=== PATIENT | female | born 1955 | race Caucasian/White ===

== ENCOUNTER 2017-08-24 07:46 | Observation (INO) | payer BC ==
[~2017-08-24] VITALS: Ht 175.3 cm; Wt 92.0 kg
[~2017-08-24 07:46] MED LIST: CELEXA20 MG PO; DEXILANT60 MG PO; HYDROCODONE-APA1 TAB PO; PHENERGAN25 M1 PO
[2017-08-24 08:17] LABS: BASOPHILS 0.4 % (0-2); EOSINOPHILS 2.6 % (0-7); HEMATOCRIT 40.6 % (36.0-48.0); HEMOGLOBIN 13.8 g/dL (12-16); IMMATURE GRANULOCYTES 1.2 % (0-5); LYMPHOCYTES 26.6 % (15-50); MCH 30.3 pg (26.0-34.0); MONOCYTES 12.8 % (2-11); NEUTROPHILS 56.4 % (40-80); RBC 4.56 10x6/uL (4.00-5.40); RDW 12.9 % (11.5-14.5); WBC 9.4 10x3/uL (4.8-10.8)
[2017-08-24 08:22] LABS: PLATELET COUNT 255 10x3/uL (130-400)
[2017-08-24 08:31] LABS: ALBUMIN 3.4 g/dL (3.4-5.0); ANION GAP 13.8 mmol/L (8-16); BILIRUBIN - TOTAL 0.6 mg/dL (0.2-1.3); CALCIUM 8.7 mg/dL (8.5-10.1); CARBON DIOXIDE 25.3 mmol/L (21.0-32.0); POTASSIUM - SERUM 4.1 mmol/L (3.5-5.1)
[2017-08-24 08:37] LABS: APTT 23.9 SECONDS (22.8-39.4); INR 0.93 (0.85-1.17); PROTIME 12.3 SECONDS (11.6-15.0)
[2017-08-24 09:09] LABS: MAGNESIUM - SERUM 2.2 mg/dL (1.8-2.4)
--- NOTE | 2017-08-24 17:36 | NUR ---
RECEIVED PT TO ROOM 2123, VIA STRETCHER, ACCOMPANIED BY SON. PT A/O X4. NO DEFICITS NOTED AT THIS TIME. ORIENTED PT TO ROOM AND CALL LIGHT. PLACED HEART MONITOR ON PT. WILL ASSESS PT AND START PLAN OF CARE.
[2017-08-24] MEDS ORDERED: CELEXA10 MG PO (17:41)
[2017-08-24 18:14] VITALS: BP 125/73; Ht 175.3 cm; Wt 92.0 kg
[2017-08-24] MEDS ORDERED: PRAVACHOL20 MG PO (18:27)
[2017-08-24 18:42] LABS: CHOL - HDL RATIO 2.4 ratio (2.3-4.1); LDL-HDL RATIO 1.1 ratio (1.5-3.5)
[2017-08-24 19:00] VITALS: BP 120/74
[2017-08-24 19:22] LABS: CKMB 0.2 U/L (0.0-3.6); CREATINE KINASE 46 UL (21-215)
[2017-08-24 19:37] LABS: TROPONIN-I < 0.017 ng/mL (0.000-0.060)
--- NOTE | 2017-08-24 22:29 | NUR ---
PATIENT RESTING COMFORTABLY. ROOM DARK, CALL LIGHT IN REACH BED IN LOW POSITION. DENIES ANY NEEDS AT THIS TIME.
[2017-08-24 23:29] VITALS: BP 112/48
[2017-08-25 01:21] LABS: CREATINE KINASE 58 UL (21-215)
[2017-08-25 01:25] LABS: TROPONIN-I < 0.017 ng/mL (0.000-0.060)
[2017-08-25 04:05] VITALS: BP 126/72
--- NOTE | 2017-08-25 05:31 | NUR ---
BAKELITE MOLDER AT BEDSIDE TO OBTAIN VITALS, WILL CONTINUE WITH PLAN OF CARE. CALL LIGHT IN REACH.
[2017-08-25 06:40] LABS: CREATINE KINASE 46 UL (21-215); TROPONIN-I < 0.017 ng/mL (0.000-0.060)
--- NOTE | 2017-08-25 07:30 | NUR ---
RECEIVED PT IN BED AAOX4 RESP UNLABORED KEEPS WANTING TO KNOW VWLIU SHE CAN LEAVE EXPLAINED SHE HAS TO HAVE TESTS DONE AND SEE PHYSICIANS NEURO CHECKS WNL NAD NOTED
[2017-08-25 07:33] VITALS: BP 147/84
--- NOTE | 2017-08-25 10:00 | NUR ---
ECHO DONE AT THIS TIME PT TOLERATED WELL
[2017-08-25 11:37] VITALS: BP 129/93
[2017-08-25] MEDS ORDERED: ASPIRIN325 MG PO (12:13)
--- NOTE | 2017-08-25 14:13 | NUR ---
REVIEWED DISCHARGE INSTRUCTIONS WITH PT AND STATES UNDERSTANDING COPY GIVEN SALINE LOCKS DCD TO RT HAND AND LAC WITH IV CATHETERS INTACT BOTH SITES FREE OF REDNESS OR EDEMA PT DISCHARGED HOME LEFT UNIT VIA W/C IN STABLE CONDITION WITH ALL PERSONAL BELONGINGS
--- NOTE | 2017-08-26 14:14 | EC ---
PATIENT:CARLA HART DATE OF SERVICE: 08/24/17 SEX: F MEDICAL RECORD: [id number] DATE OF : 59 LOCATION:[facility]. D.212 AGE OF PATIENT: 62 ADMISSION DATE: 08/24/17 REFERRING PHYSICIAN: INTERPRETING PHYSICIAN: GIL SÁNCHEZ MD ECHOCARDIOGRAM REPORT ECHO CHARGES 4 ECHO COMPLETE CLINICAL DIAGNOSIS: ARRHYTHMIA/STROKE SYMPTOMS ECHOCARDIOGRAPHIC MEASUREMENTS (adult normal given) AC root (d.<3.7cm) 3.1 cm LV Septum d (<1.2 cm> 1.3 cm Valve Excursion 1.5 cm LV Septum (systole) 1.5 cm Left Atria (s.<4.0cm> 4.5 cm LVPW d(<1.2cm) 1.5 cm RV (d.<2.3cm) 3.5 cm LVPW (sytole) 2.0 cm LV diastole(<5.6CM) 5.7 cm MV E-F(>70mm/sec) cm LV systole 3.7 cm LVOT Diameter 2.4 cm MV exc.(>10mm) 1.8 cm Est.ejection fraction (50-75%) % Pericardial Effusion N DOPPLER: LVIT cm/sec A 96.0 cm/sec E 67.0 cm/sec LA cm/sec RVSP 16 mmHg LVOT 90 cm/sec AOP1/2T m/s Asc. Ao 153 cm/sec RVOT 120 cm/sec RA cm/sec PA 147 cm/sec AV Gradient Peak 9.41 mmHg AV Mean 5.50 mmHg AV Area 2.2 cm MV Gradient Peak 4.74 mmHg MV Mean 1.34 mmHg MV Area cm COMMENTS: Fraud Prevention Analyst: Daron WAGGONER Government Service Executive: 2 Dr. Persaud TAPE# PACS DATE OF SERVICE: 08/25/2017 FINDINGS: 1. Left ventricular chamber size is within normal limits. Left ventricular systolic function is normal. Overall ejection fraction is estimated at 55% to 60%. 2. Left atrium, right atrium, and right ventricle chamber sizes are mildly dilated. Left atrium measures 4.5 cm. 3. Valvular structures have normal structure and motion. 4. Doppler interrogation reveals mild mitral regurgitation, mild tricuspid ECHOCARDIOGRAM REPORT [id number] CARLA HART regurgitation, and no other valvular insufficiency or stenosis. 5. No cardiac source of neurologic emboli. TRANSINT:[id number] Voice Confirmation ID: [id number] DOCUMENT ID: [id number] GIL SÁNCHEZ MD at 1414 CC: [id number] DICTATION DATE: 08/26/17 110 APPRENTICE PAINTER HAND: 08/26/17 1148 DIS IN 08/25/17 [place] [id number] [place] [id number]
== END 2017-08-25 14:00 | disposition home or self-care (01) ==
LOC: D.ER 07:46 → D.SDCHOLD 08:55 → OBSVTIME 08:55 → D.M2 08:55
PROVIDERS: Emergency Medicine; ADMIT Emergency Medicine
DX: G45.9 Transient cerebral ischemic attack, unspecified (principal)

== ENCOUNTER 2021-01-16 12:50 | Day surgery (SDC) | payer BC ==
[~2021-01-16] VITALS: Ht 175.3 cm; Wt 79.5 kg
[~2021-01-16 12:50] MED LIST changes: +ASPIRIN325 MG PO; +CELEXA10 MG PO; +PRAVACHOL20 MG PO
[2021-01-16 13:22] LABS: HEMATOCRIT 42.9 % (36.0-48.0); HEMOGLOBIN 14.3 g/dL (12-16); MCH 29.8 pg (26.0-34.0); MCHC 33.3 g/dL (31.0-37.0); MCV 89.4 fL (80.0-100.0); MEAN PLATELET VOLUME 10.6 fL (7.4-10.4); RBC 4.8 10x6/uL (4.00-5.40); RDW 12.8 % (11.5-14.5); WBC 8.2 10x3/uL (4.8-10.8)
[2021-01-16] MEDS ORDERED: BENADRYL25 MG PO (13:49)
[2021-01-16] MEDS ORDERED: CELEXA10 MG PO (13:49)
[2021-01-16 13:57] VITALS: BP 126/58; Ht 175.3 cm; Wt 79.5 kg
--- NOTE | 2021-01-16 19:50 | NUR ---
PT ASLEEP AND UNABLE TO STAY AWAKE. AT BEDSIDE. ITCHING TO NOSE. IVF BOLUS GIVEN. ABLE TO FOLLOW COMMANDS WITH REPEATED REQUEST. ABLE TO WIGGLE FINGERS ON RIGHT WRIST AND UNABLE TO ASSESS SENSATION AT THIS TIME. SLING PROVIDED TO PT. PT HAS A BLOCK.
--- NOTE | 2021-01-16 20:48 | NUR ---
2029 DR SHANNON NOTIFIED OF LOW SATS. 81 ON RA. PT SLOW TO AWAKEN. 2044 DR DURON NOTIFED OF WAKE UP BED. 2049 REPORT GIVEN TO NURSE ON MED SURG.
--- NOTE | 2021-01-16 21:20 | NUR ---
2100 PT MORE AWAKE AND SATS IN LOW 90S. NO SOB. ASSISTED WITH GETTING DRESSED AND BECAME NAUSEATED. COLD RAG GIVEN AND LYING DOWN IN BED. DID NOT VOMIT.
--- NOTE | 2021-01-16 21:36 | NUR ---
2124 PT ABLE TO WALK WITH ASSITANCE. NAUSEA EASING SOME. DENIES SOB OR PAIN. SLING ON TO RIGHT ARM.
--- NOTE | 2021-01-17 11:54 | OP ---
PATIENT NAME: CARLA MOREJON MEDICAL RECORD: [id number] :59 LOCATION:[facility] ADMISSION DATE: SURGEON: IRVIN DURON DO DATE OF OPERATION: 01/16/2021 PROCEDURE PERFORMED: Right distal radius open reduction internal fixation. PREOPERATIVE DIAGNOSIS: Right distal radius malunion. POSTOPERATIVE DIAGNOSIS: Right distal radius malunion. INDICATIONS: Ms. Morejon is a 65-year-old female who broke her distal radius, I think about 6 weeks ago. She had been treated in a cast and then got final x-rays and had shifted significantly with volar displacement and intra-articular split also. She had a significant volar displacement. She came to my office and was seen and got on the schedule for today. I told her probably need to remove callus and put a plate and screws on there and she would be at risk for malunion, nonunion, continued pain, damage to nerves or vessels in the area, need for further surgery, loss of motion of the wrist and wrist pain and infection and bleeding. She signed the consent. SURGEON: Irvin Duron DO DESCRIPTION OF SURGERY: The patient was given a block per anesthesia in preoperative area and taken to the operative suite, laid in supine position, given general anesthetic, 2 grams Ancef and sedated and LMA was placed. The right upper extremity was then prepped and draped in sterile fashion. A timeout was performed and everyone was in agreement with correct side, site, patient and procedure. I then began by exsanguinating the right upper extremity with an Esmarch. Tourniquet was inflated to 250 mmHg, was up for 50 minutes. I then made an incision over the flexor carpi radialis tendon and made careful dissection down to the fracture. I saw that it was quite united and I took a rongeur and removed all of the callus on the volar side and used a Pepperell to free up the dorsal side also. Then, once I got adequate reduction and K-wires holding it, I then put the Acumed plate on and put a shaft screw and then distal screws and two styloid screws and 2 more screws distally and 2 more in the shaft locking screws. It was a good reduction and was very stable. We then let the tourniquet down and coagulated any bleeding with pickup and Bovie. I irrigated the site and closed it with a 3-0 Vicryl in inverted interrupted fashion and placed Hodan glue on the incision. I then dressed with Adaptic, 4 x 4s, cast padding, and a volar splint, secured with an Kelechi wrap. She was awakened and taken to recovery in stable condition. BLOOD LOSS: Minimal. COMPLICATIONS: None. TRANSINT:[id number] Voice Confirmation ID: [id number] DOCUMENT ID: [id number] OPERATIVE REPORT [id number] CARLA MOREJON,IRVIN Oseguera DO at 1154 CC: [id number] DICTATION DATE: 01/16/21 1833 AIR EXPORT OPERATIONS AGENT: 01/17/21 0534 [facility] 01/16/21 [place] [id number] [place] [address]
== END 2021-01-16 21:30 | disposition home or self-care (01) ==
LOC: D.OPS 12:50 → D.MS 20:57 → D.OPS 21:30
PROVIDERS: Anesthesiology; ATTEND Orthopaedic Surgery
DX: S52.501A Unspecified fracture of the lower end of right radius, initial encounter for closed fracture (principal); M25.531 Pain in right wrist